=== PATIENT | female | born 1995 | race Caucasian/White ===

== ENCOUNTER 2018-11-22 20:14 | Emergency (ER) | payer BC, OTHER ==
--- NOTE | 2018-11-22 20:36 | EDM.PDOC ---
<Anthony Oates L - Last Filed: 11/22/18 20:35> ED HPI GENERAL MEDICAL PROBLEM - General Chief Complaint: Laceration Stated Complaint: FINGER INJURY Time Seen by Provider: 11/22/18 20:36 Source of Information: Reports: Patient Left Middle Finger-Middle Pain Score (Numeric/FACES): 2 - Related Data Allergies Allergy/AdvReac Type Severity Reaction Status Date / Time human papillomavirus Allergy Fatigue Verified 11/22/18 20:30 vaccine, quadr [From Gardasil (PF)] Home Meds: Home Meds Norgestimate-Ethinyl Estradiol [[place] 28 Tablet] 1 tab PO DAILY 11/22/18 [ History] Past Medical History - Past Health History Medical/Surgical History: Denies Medical/Surgical History Social & Family History - Family History Family Medical History: Noncontributory - Tobacco Use Smoking Status *Q: Never Smoker - Caffeine Use Caffeine Use: Reports: None - Recreational Drug Use Recreational Drug Use: No Course - Vital Signs Last Recorded V/S: Last Vital Signs Temp 37.0 C 11/22/18 20:26 Pulse 103 H 11/22/18 20:26 Resp 18 11/22/18 20:26 BP 174/97 H 11/22/18 20:26 Pulse Ox 98 11/22/18 20:26 - Orders/Labs/Meds Orders: Active Orders 24 hr Category Date Time Status Vaccines to be Administered [RC] PER UNIT ROUTINE Care 11/22/18 20:45 Active Meds: Medications Discontinued Medications Generic Name Dose Route Start Last Admin Trade Name Freq PRN Reason Stop Dose Admin Diphtheria/Tetanus/Acell Pertussis 0.5 ml 11/22/18 20:44 Adacel IM 11/22/18 20:45 .ONCE ONE Departure - Departure Disposition: Home, Self-Care 01 Clinical Impression: Avulsion, finger tip Qualifiers: Encounter type: initial encounter Qualified Code(s): S61.209A - Unspecified open wound of unspecified finger without damage to nail, initial encounter - Discharge Information Referrals: PCP,None [Primary Care Provider] - Forms: ED Department Discharge, ED Return to Work/School Form Additional Instructions: Evaluation in the emergency him today in regards to work related injury involving the distal aspect of her left third finger. Slipped with a knife which cause an avulsion or complete loss of skin of the fat pad on the volar surface of her left third finger. There is nothing really to suture. Wound will have to granulate in and heal by primary intention. The initial bandage placed in the ED should remain in place for the next 3 days. After this you may remove the dressing and then wash the area gently with soap and water. Then apply topical antibiotic such as bacitracin or Polysporin and portal bandage up and over the fingertip as well as around the fingertip to protect area. Note this wound will take about a month to heal in completely. Most important thing is to keep it clean and prevent it from getting infected. If any signs of infection show up such as increased redness increased pain, increased swelling or obvious pus must follow-up with care provider.Your tetanus ,diphtheria and whooping cough vaccine was updated today and is good for the next 10 years. Turn to work when able although he will not be able to use her left hand much for the next 10 -12 days. If you are unable to work then he will placed on Worker's Compensation and be out of work for the next 10 days. If that occurs any to follow-up with your personal care provider in 10 days' time. May use Motrin 600 mg every 6 hours necessary for pain relief. Elevating the hand at heart level is also helpful in reducing the throbbing. - My Orders Last 24 Hours: My Active Orders 11/22/18 20:45 Vaccines to be Administered [RC] PER UNIT ROUTINE - Assessment/Plan Last 24 Hours: My Active Orders 11/22/18 20:45 Vaccines to be Administered [RC] PER UNIT ROUTINE <Davie Patel - Last Filed: 11/22/18 20:48> ED HPI GENERAL MEDICAL PROBLEM - General Source of Information: Reports: Patient History Limitations: Reports: No Limitations - History of Present Illness INITIAL COMMENTS - FREE TEXT/NARRATIVE: Pt presents to the ER with laceration to her left 3rd finger. She works at [employer] and was cutting open bread for a sandwich and cut the later portion of the finger pad off. Site is bleeding and pressure is being applied. - My Orders Last 24 Hours: My Active Orders 11/22/18 20:45 Vaccines to be Administered [RC] PER UNIT ROUTINE - Assessment/Plan Last 24 Hours: My Active Orders 11/22/18 20:45 Vaccines to be Administered [RC] PER UNIT ROUTINE <Johnny Hanley - Last Filed: 11/22/18 21:09> ED HPI GENERAL MEDICAL PROBLEM - General Source of Information: Reports: Patient History Limitations: Reports: No Limitations - History of Present Illness Onset: Today Onset Date: 11/22/18 Onset Time: 20:15 Duration: Minutes: Location: Reports: Upper Extremity, Left (Avulsion injury or aspect distal left third finger) Quality: Reports: Ache, Burning Severity: Moderate Improves with: Reports: None Worsens with: Reports: None Context: Denies: Activity, Exercise, Lifting, Sick Contact, Trauma, Other Associated Symptoms: Reports: No Other Symptoms Treatments STRIP DEBURRER: Reports: Other (see below) (None.) Social & Family History - Living Situation & Occupation Living situation: Reports: Single Occupation: Employed ED ROS GENERAL - Review of Systems Review Of Systems: See Below Constitutional: Reports: No Symptoms HEENT: Reports: No Symptoms Respiratory: Reports: No Symptoms Cardiovascular: Reports: No Symptoms Endocrine: Reports: No Symptoms GI/Abdominal: Reports: No Symptoms : Reports: No Symptoms Musculoskeletal: Reports: Other (Acute injury to the volar aspect of her left third finger) Skin: Reports: Other ( cut with a knife at work.1-1.5 cm in diameter for aspect of left ) Neurological: Reports: No Symptoms Psychiatric: Reports: No Symptoms Hematologic/Lymphatic: Reports: No Symptoms Immunologic: Reports: No Symptoms ED EXAM, SKIN/RASH Exam: See Below Exam Limited By: No Limitations General Appearance: Alert, WD/WN, Anxious, Mild Distress Extremities: Other (Examination of her distal left third finger reveals a complete avulsion of the tissue approximate 1 cm in diameter possible up to 1.2 cm in one area. There is nothing that can be suture. The wound is actively bleeding but minor.) Neurological: Alert ( Sutures are not required.), Oriented, CN II-XII Intact, Normal Cognition, Normal Gait Psychiatric: Normal Affect, Normal Mood Skin: Warm, Dry, Normal Color Location, Skin: Other (Avulsion injury to the distal aspect of her left third finger) Course - Radiology Interpretation Free Text/Narrative:: 23-year-old female presents to the ED with a work-related injury. She slipped with the knife and avulsed partially 1-1.2 cm areas of her left third finger volar fat pad. No tissue left a suture. Wound is mildly bleeding. Sutures will not be required. She's unsure when her last tetanus diphtheria pertussis vaccine was updated. She will receive T Dap today. Plan finger contrasting will be placed and is to stay in place for 3 days. After this the patient may wash the area gently with soap and water or in the shower and then apply topical antibiotic such as Polysporin or bacitracin daily and cover with a bandage to keep clean. She was advised this wound will be take the greater part of a months to heal in completely. Follow-up with her personal care physician if any signs of infection occur such as redness, swelling, obvious pus. Departure - Departure Time of Disposition: 21:05 Condition: Fair - Discharge Information *PRESCRIPTION DRUG MONITORING PROGRAM REVIEWED*: Not Applicable *COPY OF PRESCRIPTION DRUG MONITORING REPORT IN PATIENT MATEO: Not Applicable
[2018-11-22] MEDS ORDERED: Diphtheria,Pertussis(Acell),Tetanus Vaccine 0.5 ML Syringe IM ONE (20:44)
== END 2018-11-22 21:14 | disposition home or self-care (01) ==
LOC: JD.ED 20:14
DX: S61.213A Laceration without foreign body of left middle finger without damage to nail, initial encounter (principal); Z23 Encounter for immunization; W26.0XXA Contact with knife, initial encounter; Z88.7 Allergy status to serum and vaccine
CPT/HCPCS: 90471; 90700; 99282; 99283-25